=== PATIENT | female | born 1935 | race Caucasian/White ===

== ENCOUNTER → 2017-12-18 16:39 | Outpatient (CLI) | payer MEDICARE, SELFPAY ==
[2017-12-18 17:45] LABS: International Normalized Ratio 3.4; Prothrombin Time (Protime)PT. 34.3 SECONDS (11.7-14.9)
== END ==
PROVIDERS: Family Provider Family Medicine; PCP Family Medicine; Visit Provider Ophthalmology
DX: H11.30 Conjunctival hemorrhage, unspecified eye (principal); Z79.01 Long term (current) use of anticoagulants
CPT/HCPCS: 36415; 85610